=== PATIENT | female | born 1945 | race Caucasian/White ===

== ENCOUNTER 2018-09-02 22:33 | Emergency (ER) | payer OTHER, MEDICAID ==
[2018-09-03 01:32] LABS: ADD MAN DIFF? NO
[2018-09-03 01:33] LABS: WHITE BLOOD COUNT 7.2 10^3/ul (4.8-10.8)
[2018-09-03 01:33] LABS: BASOPHILS % 0.4 % (0.0-2.0); EOSINOPHILS # 0.1 10^3/ul (0.0-0.5); EOSINOPHILS % 1.3 % (0.0-7.0); HEMATOCRIT 35.9 % (37.0-47.0); LYMPHOCYTES # 2.6 10^3/ul (0.8-2.9); LYMPHOCYTES % 36.4 % (15.0-51.0); MEAN CORPUSCULAR HEMOGLOBIN 28.6 pg (29.0-33.0); MEAN CORPUSCULAR HGB CONC 33.4 g/dl (32.0-37.0); MEAN CORPUSCULAR VOLUME 85.7 fl (82.0-101.0); MONOCYTE # 0.6 10^3/ul (0.3-0.9); MONOCYTES % 8.6 % (0.0-11.0); NEUTROPHIL # 3.8 10^3/ul (1.6-7.5); NEUTROPHILS % 52.9 % (39.0-77.0); PLATELET COUNT 297 10^3/UL (140-415); RED BLOOD COUNT 4.19 10^6/ul (4.20-5.40); RED CELL DISTRIBUTION WIDTH 12.9 % (11.5-14.5)
[2018-09-03 01:52] LABS: ALANINE AMINOTRANSFERASE 14 IU/L (13-69); ALBUMIN 4.7 g/dl (3.3-4.9); ALBUMIN/GLOBULIN RATIO 1.38; ALKALINE PHOSPHATASE 105 IU/L (42-121); ANION GAP 14 (5-13); ASPARTATE AMINO TRANSFERASE 26 IU/L (15-46); BILIRUBIN,INDIRECT 0.4 mg/dl (0-1.1); BILIRUBIN,TOTAL 0.4 mg/dl (0.2-1.3); BLOOD UREA NITROGEN 13 mg/dl (7-20); CALCIUM 9.6 mg/dl (8.4-10.2); CARBON DIOXIDE 27 mmol/L (21-31); CHLORIDE 86 mmol/L (97-110); CREATININE 0.66 mg/dl (0.44-1.00); Estimated GFR > 60 mL/min (>60); GLUCOSE 146 mg/dl (70-220); INR 0.83; PROTIME 11.5 Sec (11.9-14.9); PT RATIO 0.9; SODIUM 127 mmol/L (135-144); TOTAL PROTEIN 8.1 g/dl (6.1-8.1)
[2018-09-03 02:00] LABS: B-TYPE NATRIURETIC PEPTIDE 28 PG/ML (0-125)
[2018-09-03 02:08] LABS: POTASSIUM 4.1 mmol/L (3.5-5.1)
[2018-09-03 02:24] LABS: TROPONIN-I < 0.012 ng/ml (0.000-0.120)
[2018-09-03] MEDS: DEXAMETHASONE 10 MG/ML 1 ML INJ IV (02:39)
[2018-09-03] MEDS: IPRATROPIUM (NEB) 0.5 MG/2.5 ML AMP INH (02:40)
[2018-09-03] MEDS: ALBUTEROL 0.083% (NEB) 2.5 MG/3 ML AMP INH (02:40)
== END 2018-09-03 04:09 | disposition home or self-care (01) ==
LOC: E/R 22:33
DX: J45.901 Unspecified asthma with (acute) exacerbation (principal)
CPT/HCPCS: 36415; 71045; 80053; 83880; 84484; 85025; 85610; 93005; 94664; 96374; 99285-25